=== PATIENT | male | born 1990 | race Caucasian/White ===

== ENCOUNTER 2020-09-28 20:39 | Inpatient (IN) | payer OTHER ==
[~2020-09-28] VITALS: Ht 193 cm; Wt 88.5 kg
[~2020-09-28 20:39] MED LIST: BACTRIM DS TAB1 EACH PO; EPIPEN 2-P0.3 MG/0.3 INJ; FOLIC ACID 1 MG1 MG PO; LISINOPRIL10 MG PO; THERAGRAN M TAB1 EA PO; VITAMIN B-1100 MG PO
[2020-09-28 22:20] LABS: HEMOGLOBIN 17.1 gm/dl (14.0-17.5); RED BLOOD COUNT 4.12 M/UL (4.20-5.50); WHITE BLOOD COUNT 10.4 K/UL (4.5-11.0)
[2020-09-28 22:32] LABS: BUN/CREATININE RATIO 9 (0-10)
[2020-09-29 13:21] LABS: HEMOGLOBIN 14.8 gm/dl (14.0-17.5); RED BLOOD COUNT 3.57 M/UL (4.20-5.50); WHITE BLOOD COUNT 8.7 K/UL (4.5-11.0)
[2020-09-29 13:59] LABS: BUN/CREATININE RATIO 5 (0-10)
[2020-09-30 06:21] LABS: HEMOGLOBIN 16.4 gm/dl (14.0-17.5); RED BLOOD COUNT 3.92 M/UL (4.20-5.50)
[2020-09-30 06:26] LABS: WHITE BLOOD COUNT 12.8 K/UL (4.5-11.0)
[2020-09-30 07:40] LABS: BUN/CREATININE RATIO 7 (0-10)
[2020-10-01 06:11] LABS: HIV SCREEN 4TH GENERATION WRFX Non Reactive (Non Reactive)
[2020-10-01 06:22] LABS: HEMOGLOBIN 14.6 gm/dl (14.0-17.5); RED BLOOD COUNT 3.52 M/UL (4.20-5.50); WHITE BLOOD COUNT 9.1 K/UL (4.5-11.0)
[2020-10-01 07:10] LABS: HBSAG SCREEN Negative (Negative); HEP A AB, IGM Negative (Negative); HEP B CORE AB, IGM Negative (Negative); HEP C VIRUS AB <0.1 (0.0-0.9)
[2020-10-01 07:38] LABS: BUN/CREATININE RATIO 7 (0-10)
[2020-10-02 03:27] LABS: HEMOGLOBIN 14.1 gm/dl (14.0-17.5); RED BLOOD COUNT 3.41 M/UL (4.20-5.50); WHITE BLOOD COUNT 7.3 K/UL (4.5-11.0)
[2020-10-02 04:17] LABS: BUN/CREATININE RATIO 7 (0-10)
[2020-10-02] MEDS ORDERED: VITAMIN B-1100 M1 PO (12:20)
[2020-10-02] MEDS ORDERED: FOLIC ACID 1 MG1 MG PO (12:20)
[2020-10-02] MEDS ORDERED: VITAMIN B-121000 MC3 PO (12:20)
[2020-10-02] MEDS ORDERED: BANOPHEN25 MG PO (12:20)
== END 2020-10-02 14:45 | disposition home or self-care (01) | DRG 603 ==
LOC: ER1 20:39 → CDU 09-29 05:52 → M/S 09-29 10:50 → CDU 09-29 10:50 → M/S 09-29 18:03
PROVIDERS: Emergency Medicine; Internal Medicine; Physician Assistant; ADMIT Family Medicine
DX: L03.90 Cellulitis, unspecified (principal); E87.2 Acidosis; Z20.822 Contact with and (suspected) exposure to COVID-19; L27.0 Generalized skin eruption due to drugs and medicaments taken internally; R21 Rash and other nonspecific skin eruption; K70.10 Alcoholic hepatitis without ascites; E53.8 Deficiency of other specified B group vitamins; F10.129 Alcohol abuse with intoxication, unspecified; Y90.7 Blood alcohol level of 200-239 mg/100 ml; E87.6 Hypokalemia; F17.210 Nicotine dependence, cigarettes, uncomplicated; B34.9 Viral infection, unspecified; L30.9 Dermatitis, unspecified; D75.89 Other specified diseases of blood and blood-forming organs; Z88.0 Allergy status to penicillin
CPT/HCPCS: 36415; 76705; 80048; 80053; 80074; 80076; 80307; 81001; 82607; 82746; 83605; 83615; 83690; 84439; 84443; 85025; 85610; 85652; 86021; 86140; 87040; 87389; 93005; 96365; 96366; 96367; 96368; 96375; 96376; 99284; G0480; J0696; J1200; J1885; J1956; J2920; J2930; J3370; J3411; J3475; J7030; J7070; U0002

== ENCOUNTER 2021-02-09 00:07 | Emergency (ER) | payer OTHER ==
[~2021-02-09 00:07] MED LIST changes: +BANOPHEN25 MG PO; +VITAMIN B-1100 M1 PO; +VITAMIN B-121000 MC3 PO
[2021-02-09 01:32] LABS: HEMOGLOBIN 16.6 gm/dl (14.0-17.5); RED BLOOD COUNT 3.94 M/UL (4.20-5.50)
[2021-02-09 01:49] LABS: BUN/CREATININE RATIO 6 (0-10)
[2021-02-10 11:09] LABS: HBSAG SCREEN Negative (Negative); HEP A AB, IGM Negative (Negative); HEP B CORE AB, IGM Negative (Negative); HEP C VIRUS AB <0.1 (0.0-0.9)
== END 2021-02-09 05:30 | disposition home or self-care (01) ==
LOC: ER1 00:07
PROVIDERS: Physician Assistant
DX: K80.80 Other cholelithiasis without obstruction (principal); F10.10 Alcohol abuse, uncomplicated; J45.909 Unspecified asthma, uncomplicated; F17.210 Nicotine dependence, cigarettes, uncomplicated; Z88.0 Allergy status to penicillin
CPT/HCPCS: 80053; 80074; 80307; 81001; 82150; 83690; 85025; 85610; 99284; G0480; Q9967

== ENCOUNTER → 2021-03-14 | Outpatient (CLI) | payer OTHER ==
[~2021-03-14] MED LIST changes: +ALDACTONE50 MG PO; +LASIX20 MG PO; +LEVOFLOXACIN500 MG PO; +NICOTINE PATCH1 EAC2 TOP; +PROCTOFOAM-HC 110 G1 TOP; +TAB-A-VITE TA400 MC1 PO
[2021-03-14 12:37] LABS: BUN/CREATININE RATIO 5 (0-10)
== END ==
LOC: LAB 10:40
PROVIDERS: Internal Medicine Gastroenterology
DX: R10.13 Epigastric pain (principal)
CPT/HCPCS: 36415; 80048; 80076; 85610

== ENCOUNTER 2021-04-17 16:05 | Inpatient (IN) | payer MEDICAID ==
[~2021-04-17] VITALS: Ht 193 cm; Wt 92.6 kg
[~2021-04-17 16:05] MED LIST changes: -ALDACTONE50 MG PO; -LASIX20 MG PO; -LEVOFLOXACIN500 MG PO; -NICOTINE PATCH1 EAC2 TOP; -PROCTOFOAM-HC 110 G1 TOP; -TAB-A-VITE TA400 MC1 PO
[2021-04-17 19:45] LABS: HEMOGLOBIN 12.9 gm/dl (14.0-17.5); RED BLOOD COUNT 3.72 M/UL (4.20-5.50); WHITE BLOOD COUNT 9.3 K/UL (4.5-11.0)
[2021-04-17 20:13] LABS: BUN/CREATININE RATIO 10 (0-10)
[2021-04-18] MEDS ORDERED: LASIX20 MG PO (12:06)
[2021-04-18] MEDS ORDERED: ALDACTONE50 MG PO (12:06)
[2021-04-18 14:48] LABS: HEMOGLOBIN 11.8 gm/dl (14.0-17.5); RED BLOOD COUNT 3.39 M/UL (4.20-5.50)
[2021-04-18 14:49] LABS: WHITE BLOOD COUNT 6.4 K/UL (4.5-11.0)
[2021-04-18 15:08] LABS: BUN/CREATININE RATIO 11 (0-10)
[2021-04-18 20:25] LABS: BUN/CREATININE RATIO 9 (0-10)
[2021-04-18 23:41] LABS: BUN/CREATININE RATIO 9 (0-10)
[2021-04-19 04:20] LABS: HEMOGLOBIN 10.7 gm/dl (14.0-17.5); RED BLOOD COUNT 3.1 M/UL (4.20-5.50)
[2021-04-19 04:24] LABS: WHITE BLOOD COUNT 8.2 K/UL (4.5-11.0)
[2021-04-19 04:53] LABS: BUN/CREATININE RATIO 9 (0-10)
[2021-04-19 16:53] LABS: BODY FLUID SOURCE PERITONEAL; MONONUCLEAR CELLS 93 (75-100); POLYMORPHONUCLEAR % 7 (0-25); RBC (AUTOMATED) 200 (0-100000); WBC (AUTOMATED) 160 (0-500)
[2021-04-19 16:54] LABS: LDH, BODY FLUID 46 U/L; TOTAL PROTEIN, BODY FLUID 1.3 gm/dL
[2021-04-20 07:53] LABS: HEMOGLOBIN 11.1 gm/dl (14.0-17.5); RED BLOOD COUNT 3.26 M/UL (4.20-5.50); WHITE BLOOD COUNT 5.8 K/UL (4.5-11.0)
[2021-04-20 08:39] LABS: BUN/CREATININE RATIO 10 (0-10)
[2021-04-21 07:40] LABS: HEMOGLOBIN 11.1 gm/dl (14.0-17.5); RED BLOOD COUNT 3.28 M/UL (4.20-5.50)
[2021-04-21 07:41] LABS: WHITE BLOOD COUNT 7.6 K/UL (4.5-11.0)
[2021-04-21 08:03] LABS: BUN/CREATININE RATIO 12 (0-10)
[2021-04-22 07:03] LABS: HEMOGLOBIN 12.1 gm/dl (14.0-17.5); RED BLOOD COUNT 3.55 M/UL (4.20-5.50); WHITE BLOOD COUNT 6.3 K/UL (4.5-11.0)
[2021-04-22 07:24] LABS: BUN/CREATININE RATIO 12 (0-10)
[2021-04-22] MEDS ORDERED: FOLIC ACID 1 MG1 MG PO (15:23)
[2021-04-22] MEDS ORDERED: TAB-A-VITE TA400 MC1 PO (15:23)
[2021-04-22] MEDS ORDERED: LEVOFLOXACIN500 MG PO (15:23)
[2021-04-22] MEDS ORDERED: NICOTINE PATCH1 EAC2 TOP (15:23)
[2021-04-22] MEDS ORDERED: PROCTOFOAM-HC 110 G1 TOP (15:23)
[2021-04-22] MEDS ORDERED: VITAMIN B-1100 M1 PO (15:23)
[2021-04-22] MEDS ORDERED: LASIX20 MG PO (16:26)
[2021-04-22] MEDS ORDERED: ALDACTONE50 MG PO (16:26)
== END 2021-04-22 17:03 | disposition home or self-care (01) | DRG 432 ==
LOC: ER1 16:05 → CDU 04-18 11:46 → MED SURG 4 04-19 16:00
PROVIDERS: Emergency Medicine; Internal Medicine; Physician Assistant; Physician Assistant Medical; ADMIT Internal Medicine
PROC: B24BZZ4 Ultrasonography of Heart with Aorta, Transesophageal (ICD-10-PCS; principal; 2021-04-18)
PROC: BW40ZZZ Ultrasonography of Abdomen (ICD-10-PCS; 2021-04-18)
PROC: 0W9G3ZX Drainage of Peritoneal Cavity, Percutaneous Approach, Diagnostic (ICD-10-PCS; 2021-04-18)
DX: K70.31 Alcoholic cirrhosis of liver with ascites (principal); J18.9 Pneumonia, unspecified organism; E87.1 Hypo-osmolality and hyponatremia; Z20.822 Contact with and (suspected) exposure to COVID-19; K76.6 Portal hypertension; I47.1 Supraventricular tachycardia; I85.00 Esophageal varices without bleeding; J98.11 Atelectasis; F12.10 Cannabis abuse, uncomplicated; F15.10 Other stimulant abuse, uncomplicated; R59.9 Enlarged lymph nodes, unspecified; F10.10 Alcohol abuse, uncomplicated; F17.210 Nicotine dependence, cigarettes, uncomplicated; I10 Essential (primary) hypertension; D64.9 Anemia, unspecified; E88.09 Other disorders of plasma-protein metabolism, not elsewhere classified; K64.9 Unspecified hemorrhoids; K70.30 Alcoholic cirrhosis of liver without ascites; F19.10 Other psychoactive substance abuse, uncomplicated; E53.8 Deficiency of other specified B group vitamins; Z88.0 Allergy status to penicillin; Z82.49 Family history of ischemic heart disease and other diseases of the circulatory system
CPT/HCPCS: 36415; 71045; 71046; 76870; 80048; 80053; 81001; 82140; 82550; 82553; 82746; 82945; 83615; 83735; 83874; 83880; 84100; 84157; 84484; 85025; 85027; 85610; 85730; 87070; 87205; 89051; 93308; 96374; 99285; G0378; J1650; J1940; J1956; P9047; Q9967; U0002

== ENCOUNTER 2021-05-15 04:57 | Emergency (ER) | payer OTHER ==
[~2021-05-15 04:57] MED LIST changes: +ALDACTONE50 MG PO; +LASIX20 MG PO; +LEVOFLOXACIN500 MG PO; +NICOTINE PATCH1 EAC2 TOP; +PROCTOFOAM-HC 110 G1 TOP; +TAB-A-VITE TA400 MC1 PO
[2021-05-15 05:41] LABS: HEMOGLOBIN 12.2 gm/dl (14.0-17.5); RED BLOOD COUNT 3.62 M/UL (4.20-5.50)
[2021-05-15 05:53] LABS: BUN/CREATININE RATIO 15 (0-10)
== END 2021-05-15 12:09 | disposition home or self-care (01) ==
LOC: ER1 04:57
PROVIDERS: Family Medicine
DX: K74.60 Unspecified cirrhosis of liver (principal); F17.210 Nicotine dependence, cigarettes, uncomplicated
CPT/HCPCS: 80053; 83690; 85025; 85610; 93005; 94664; 96374; 96376; 99285; C1729; P9047

== ENCOUNTER → 2021-05-30 | Outpatient (CLI) | payer OTHER ==
[~2021-05-30] VITALS: Ht 193 cm; Wt 95.3 kg
[2021-05-30 11:20] LABS: BUN/CREATININE RATIO 14 (0-10)
[2021-05-30 12:10] LABS: BODY FLUID SOURCE ASCITES
[2021-05-30 12:13] LABS: MONONUCLEAR CELLS 90 (75-100); POLYMORPHONUCLEAR % 10 (0-25); RBC (AUTOMATED) 100 (0-100000); WBC (AUTOMATED) 125 (0-500)
[2021-05-30 12:32] LABS: TOTAL PROTEIN, BODY FLUID 1.2 gm/dL
== END ==
LOC: OPSV 09:53
PROVIDERS: Internal Medicine Gastroenterology
DX: K70.31 Alcoholic cirrhosis of liver with ascites (principal)
CPT/HCPCS: 36415; 80048; 82150; 82945; 83615; 83986; 84157; 89051; 96365; C1729; P9047

== ENCOUNTER → 2021-06-12 | Outpatient (CLI) | payer OTHER ==
[~2021-06-12] VITALS: Ht 193 cm; Wt 95.3 kg
[2021-06-12 11:11] LABS: BUN/CREATININE RATIO 22 (0-10)
== END | disposition home or self-care (01) ==
LOC: OPSV 09:53
PROVIDERS: Internal Medicine Gastroenterology
PROC: 0W9G3ZZ Drainage of Peritoneal Cavity, Percutaneous Approach (ICD-10-PCS; principal; 2021-06-12)
DX: K74.60 Unspecified cirrhosis of liver (principal); R18.8 Other ascites; Z88.0 Allergy status to penicillin; Z88.5 Allergy status to narcotic agent; Z79.899 Other long term (current) drug therapy
CPT/HCPCS: 36415; 80048; 96365; C1729; P9047

== ENCOUNTER → 2021-06-26 | Outpatient (CLI) | payer OTHER ==
[~2021-06-26] VITALS: Ht 193 cm; Wt 95.3 kg
[2021-06-26 10:48] LABS: BUN/CREATININE RATIO 14 (0-10)
== END | disposition home or self-care (01) ==
LOC: OPSV 09:40
PROVIDERS: Internal Medicine Gastroenterology
PROC: 0W9G3ZZ Drainage of Peritoneal Cavity, Percutaneous Approach (ICD-10-PCS; principal; 2021-06-26)
DX: K70.31 Alcoholic cirrhosis of liver with ascites (principal); Z79.899 Other long term (current) drug therapy; Z88.0 Allergy status to penicillin; Z88.5 Allergy status to narcotic agent
CPT/HCPCS: 36415; 80048; 96365; C1729; P9047

== ENCOUNTER → 2021-07-10 | Outpatient (CLI) | payer OTHER ==
[~2021-07-10] VITALS: Ht 193 cm; Wt 95.3 kg
[2021-07-10 11:17] LABS: BUN/CREATININE RATIO 18 (0-10)
== END ==
LOC: OPSV 09:59
PROVIDERS: Internal Medicine Gastroenterology
DX: K70.31 Alcoholic cirrhosis of liver with ascites (principal)
CPT/HCPCS: 36415; 80048; 80076; 85610; 96365; P9047

== ENCOUNTER → 2021-07-24 | Outpatient (CLI) | payer OTHER ==
[~2021-07-24] VITALS: Ht 193 cm; Wt 95.3 kg
[2021-07-24 12:21] LABS: BUN/CREATININE RATIO 10 (0-10)
== END ==
LOC: OPSV 10:00
PROVIDERS: Internal Medicine Gastroenterology
DX: K70.31 Alcoholic cirrhosis of liver with ascites (principal)
CPT/HCPCS: 36415; 80048; 96365; P9047

== ENCOUNTER → 2021-08-07 | Outpatient (CLI) | payer OTHER ==
[~2021-08-07] VITALS: Ht 193 cm; Wt 95.3 kg
[2021-08-07 10:33] LABS: HEMOGLOBIN 12.2 gm/dl (14.0-17.5); RED BLOOD COUNT 4.04 M/UL (4.20-5.50)
[2021-08-07 10:59] LABS: BUN/CREATININE RATIO 26 (0-10)
== END ==
LOC: OPSV 09:53
PROVIDERS: Internal Medicine
DX: K70.31 Alcoholic cirrhosis of liver with ascites (principal); K72.10 Chronic hepatic failure without coma; K42.9 Umbilical hernia without obstruction or gangrene
CPT/HCPCS: 36415; 80053; 85027; 85610; 85730

== ENCOUNTER → 2021-08-14 | Outpatient (CLI) | payer OTHER ==
[2021-08-14 11:36] LABS: BUN/CREATININE RATIO 22 (0-10)
== END ==
LOC: OPSV 10:00
PROVIDERS: Internal Medicine Gastroenterology
DX: K70.31 Alcoholic cirrhosis of liver with ascites (principal)
CPT/HCPCS: 36415; 80048

== ENCOUNTER 2022-01-21 15:37 | Emergency (ER) | payer OTHER ==
[~2022-01-21] VITALS: Ht 190.5 cm; Wt 90.7 kg
[~2022-01-21 15:37] MED LIST changes: +ADVAIR HFA 115/1 INH INH; +NADOLOL20 MG PO; +NEURONTIN 100100 MG PO
[2022-01-21 16:31] LABS: HEMOGLOBIN 11.8 gm/dl (14.0-17.5); RED BLOOD COUNT 4.16 M/UL (4.20-5.50); WHITE BLOOD COUNT 7.2 K/UL (4.5-11.0)
[2022-01-21 17:13] LABS: BUN/CREATININE RATIO 22 (0-10)
[2022-01-22 04:27] LABS: HEMOGLOBIN 11.3 gm/dl (14.0-17.5); RED BLOOD COUNT 3.93 M/UL (4.20-5.50); WHITE BLOOD COUNT 5.5 K/UL (4.5-11.0)
[2022-01-22 04:55] LABS: BUN/CREATININE RATIO 20 (0-10)
== END 2022-01-22 21:26 | disposition short-term general hospital (02) ==
LOC: ER1 15:37
PROVIDERS: Family Medicine; Physician Assistant
DX: K70.30 Alcoholic cirrhosis of liver without ascites (principal); I85.11 Secondary esophageal varices with bleeding; J45.909 Unspecified asthma, uncomplicated; F17.200 Nicotine dependence, unspecified, uncomplicated; Z51.81 Encounter for therapeutic drug level monitoring; Z20.822 Contact with and (suspected) exposure to COVID-19
CPT/HCPCS: 0240U; 36415; 80053; 83690; 85025; 85610; 86850; 86900; 86901; 96374; 99285; C9113; J0696; J1200; J2354